=== PATIENT | female | born 1945 | race Caucasian/White ===

== ENCOUNTER 2017-10-14 05:54 | Day surgery (SDC) | payer MEDICARE ==
--- NOTE | 2017-10-05 15:34 | HP ---
Amended report to enter cosigning physician. CC: Dr. Sousa; Dr. José Brewer*. PREOPERATIVE HISTORY AND PHYSICAL: DATE OF ADMISSION: 10/14/17. This patient is scheduled for a same-day surgery admission by Dr. Sousa on 10/14/17. DATE OF EXAMINATION: 10/05/17. ATTENDING SURGEON: Dr. Jed Sousa* (dictated by Devin Kaminski, RUDY). CHIEF COMPLAINT: Right groin hernia. HISTORY OF PRESENT ILLNESS: The patient is a 71-year-old female referred to Dr. Sousa from Dr. Brewer for evaluation of right inguinal hernia. 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 She started to develop pain in the right groin. He has since , but she has continued with increasing pain in the right groin. She denies any change in bowel or bladder function and denies any signs or symptoms to suggest incarceration or strangulation of the right inguinal hernia. She has been reasonably fit, active, and healthy for her age. Dr. Sousa examined the patient and notes an obvious bulge in the right groin that increases with Valsalva maneuver; Dr. Sousa discussed the findings with the patient and stated that he thinks this is a right inguinal hernia, although conceivably it could be a femoral hernia. He has advised open right inguinal hernia repair with mesh as a same-day surgery procedure with local anesthetic and intravenous sedation. Dr. Sousa described the nature of the surgical procedure, the rationale for the procedure, the relevant risks and benefits, and today I reviewed the expected postoperative care and recovery. The patient has had a chance to ask questions and stated that she understands the information and is satisfied with the answers given to her questions. She will sign surgical consent on the day of surgery. PAST MEDICAL HISTORY: Significant for well-controlled hypertension; overactive bladder and scoliosis. PAST SURGICAL HISTORY: Total abdominal hysterectomy in the , right oophorectomy in the ; cataract extractions with lens implants. MEDICATIONS: 1. Alendronate sodium 70 mg 1 tablet p.o. weekly. 2. Calan SR 240 mg 1-1/2 tablets daily. 3. Simvastatin 20 mg daily at bedtime. 4. Enalapril 10 mg p.o. daily. 5. Aspirin 81 mg daily which she will hold 5 days preoperatively. 6. Biotin tablet daily. 7. Folic acid 1 mg daily. 8. Calcium and vitamin D3 supplement daily. 9. Metronidazole cream 0.75% topically every morning. ALLERGIES: No known drug allergies. FAMILY HISTORY: No known anesthesia complications, bleeding tendencies, or clotting disorders. SOCIAL HISTORY: She is recently ; she is a nonsmoker and drinks approximately 2 ounces of alcohol daily. She does exercise routinely. She denies the use of other substances. REVIEW OF SYSTEMS: Constitutional: No fevers or chills. No excessive fatigue or weight loss. Endocrine: No diabetes or thyroid disease. Hematologic: While on daily aspirin, she has noticed easy bruising, but no bleeding; she has never received blood transfusion. Respiratory: No dyspnea on exertion or chronic cough. She is a nonsmoker. Cardiovascular: No anginal chest pain or palpitations. Gastrointestinal: No nausea, vomiting, diarrhea, GI bleeding, or constipation. No change in bowel habits. Genitourinary: Overactive bladder. No painful urination or hematuria. Musculoskeletal: Back aches related to history of scoliosis. Neurologic: No headache or blurred vision; no areas of focal weakness or numbness. General: No previous anesthesia complications. No history of deep vein thrombosis or pulmonary embolism. PHYSICAL EXAMINATION GENERAL SURVEY: The patient is a 71-year-old female, well developed, well nourished, in no acute distress. VITAL SIGNS: Height 65 inches, weight 122 pounds, body mass index 20.3, blood pressure 144/80, pulse 76, respirations 16, temperature 98.2 tympanic. SKIN: Warm, dry, and intact. HEENT: Benign. NECK: Supple. No cervical lymphadenopathy. LUNGS: Breath sounds bilaterally clear and equal. BACK: No CVA tenderness. HEART: Regular rate and rhythm. No murmurs or rubs appreciated. ABDOMEN: Active bowel sounds, soft and nondistended. No obvious masses or organomegaly. INGUINAL EXAM: Reveals an obvious bulge in the right groin that increases with Valsalva. There is no left inguinal hernia. There is no inguinal adenopathy bilaterally. PELVIC EXAM: Deferred. RECTAL EXAM: Deferred. EXTREMITIES: Warm without edema or skin ulcerations. NEUROLOGIC: Alert and oriented x3. Steady gait. IMPRESSION: Right inguinal hernia. PLAN/RECOMMENDATIONS: Same-day surgery admission to Dr. Sousa's service on , 10/14/17 for open right inguinal hernia repair with mesh. DEVIN KAMINSKI, [employer] [id number]/[facility] #: [id number] MTDOscar
[~2017-10-14 05:54] MED LIST: Buffered Lidocaine 0.9% SYRIN* 5 ML/SYR SYRINGE INTRADERM ONE; DiMENhydriNATE IV* 50 MG/ML VIAL IV PUSH PRN; Morphine INJ* 2 MG/ML 1 ML CARPUJECT IV PRN; Naloxone* 0.4 MG/ML 1 ML VIAL IV PRN; PROCHLORPERAZINE INJ 5 MG/ML 2 ML VIAL IV PRN; fentaNYL* 50 MCG/ML 2 ML VIAL (100 MCG VIAL) IV PRN; oxyCODONE/Acetamin 5/325 MG* TAB PO PRN
[2017-10-14] MEDS ORDERED: Ondansetron INJ* 2 MG/ML VIAL ONE (06:00)
[2017-10-14] MEDS ORDERED: Famotidine TAB* 20 MG PO ONE (06:00)
[2017-10-14] MEDS ORDERED: ceFAZolin 2 GM PREMIX (*) 2 GM/50 ML BAG IVPB ONE (06:09)
[2017-10-14] MEDS ORDERED: Ondansetron ODT TAB* 4 MG ONE (06:09)
[2017-10-14] MEDS ORDERED: Famotidine TAB* 20 MG ONE (06:09)
[2017-10-14] MEDS ORDERED: Bupivacaine 0.5%* 50 ML VIAL ONE (07:08)
[2017-10-14] MEDS ORDERED: Lidocain 1% EPI 1:100,000 * 30 ML MDV ONE (07:08)
[2017-10-14] MEDS ORDERED: fentaNYL* 50 MCG/ML 2 ML VIAL (100 MCG VIAL) ONE (07:15)
[2017-10-14] MEDS ORDERED: Midazolam* 1 MG/ML 5 ML VIAL (5 MG) ONE (07:15)
[2017-10-14] MEDS ORDERED: Propofol* 10 MG/ML 20 ML BTL IV PUSH ONE (08:07)
[2017-10-14] MEDS ORDERED: Dexamethasone IV* 4 MG/ML 1 ML (4 MG) ONE (08:07)
[2017-10-14] MEDS ORDERED: Acetaminophen TAB* 325 MG PO PRN (08:11)
--- NOTE | 2017-10-14 08:11 | OP ---
Operative Report - Blank - Operative Report Date of Operation: 10/14/17 Note: Preop Dx: right inguinal hernia Postop Dx: same Procedure: open repair RIH w/ mesh Anesthesia: local/MAC Surgeon: Lars Asst: KENYA Hernandez Fluids: 800 ml RL EBL: none Specimen: none Drains:none Findings: dictated
[2017-10-14 08:36] VITALS: BP 138/72
[2017-10-14] MEDS ORDERED: Ketorolac INJ* 30 MG/ML 1 ML VIAL ONE (08:37)
[2017-10-14] MEDS ORDERED: Ketorolac INJ* 15 MG/ML 1 ML VIAL IV PUSH ONE (08:37)
--- NOTE | 2017-10-14 13:24 | OP ---
CC: Dr. Sousa; Dr. Brewer OPERATIVE REPORT: DATE OF OPERATION: 10/14/17 DATE OF : 41 SURGEON: Jed Sousa MD LAUNDRY TUB MAKER: KENYA Murphy ANESTHESIOLOGIST: Dr. House. ANESTHESIA: LMAC anesthesia. PRE-OP DIAGNOSIS: Right inguinal hernia. POST-OP DIAGNOSIS: Right inguinal hernia. OPERATIVE PROCEDURE: Right inguinal hernia repair with mesh. DESCRIPTION OF PROCEDURE: The patient was supine on the operating room table. After adequate intrave nous sedation, compression stockings, and Alvaro Hugger warmer, the right groin was clipped and prepped with antiseptic and draped in a sterile fashion. Local infiltrative anesthesia was administered and approximately 4 cm incision was created and carried down to the external oblique which was opened in the direction of its fibers. Round ligament structures were encircled with a Adriano drain, tented upward. There was an indirect space hernia, which was dissected free and reduced and a cone mesh plu g was placed into the internal ring. It was sutured there with 2-0 Vicryl. A second piece of mesh wa s placed over the inguinal floor, sutured at the tubercle. Tails were split, brought around the liga ment structures, and tacked down laterally. External oblique was closed over top with 2-0 Vicryl, Sc arpa's with 3-0 Vicryl, skin with 4-0 Surgipro followed by a sterile dressing. She tolerated the pro cedure well, was awakened and brought to Recovery in good condition. No complications. No drains. No pathologic specimens. Sponge and instrument counts were correct. Estimated blood loss is 10 mL. [id number]/[facility] #: [id number]
== END 2017-10-14 08:59 | disposition home or self-care (01) ==
LOC: OR 05:54
PROVIDERS: ATTEND Surgery
DX: K40.90 Unilateral inguinal hernia, without obstruction or gangrene, not specified as recurrent (principal); I10 Essential (primary) hypertension; M41.9 Scoliosis, unspecified; N32.81 Overactive bladder
CPT/HCPCS: A9270-GY; C1781; J0690; J1100; J1885; J2250; J2704; J3010